=== PATIENT | female | born 1960 | race American Indian/Alaskan Native ===

== ENCOUNTER 2019-07-01 00:54 | Emergency (ER) | payer MEDICARE ==
[2019-07-01] MEDS ORDERED: SODIUM CHLORIDE 0.9% 1000 ML 1,000 ML IV ONE (01:17)
[2019-07-01] MEDS ORDERED: HYDROmorphone 1 MG/1 ML INJ IV ONE (01:19)
--- NOTE | 2019-07-01 01:19 | Emergency Department Report ---
ED General Adult HPI - General Chief complaint: Abdominal Pain Stated complaint: ABD PAIN Time Seen by Provider: 07/01/19 00:56 Source: patient, EMS ( EMS documentation not available at time of chart dictation ), RN notes reviewed Mode of arrival: Stretcher Limitations: Physical Limitation - History of Present Illness Initial comments: Gastroenterology: Dr. 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 She has chronic left upper quadrant abdominal pain. She presents to the ER today with an acute exacerbation of her left upper quadrant abdominal pain. Her symptoms have started within the past 4 to 5 hours. There are no DVT or pulmonary embolism risk factors. No fever, no cough, no confirmed exposure to coronavirus. There is no complaint of headache, neck pain, chest pain, shortness of breath, urinary symptoms, there is no complaint of extremity weakness and or numbness. This feels similar to prior episodes of gastroparesis flare. Patient makes no complaint of nausea, vomiting or diarrhea. -: Gradual, hour(s) Location: abdomen Radiation: non-radiation Consistency: constant Improves with: none Worsens with: movement - Related Data Home Medications Medication Instructions Recorded Confirmed Last Taken AtorvaSTATin [Lipitor] 10 mg PO QHS 07/01/19 07/01/19 1 Day Ago ~06/30/19 Linagliptin [Tradjenta] 5 mg PO QDAY 07/01/19 07/01/19 1 Day Ago ~06/30/19 Metformin HCl [Metformin HCl ER] 500 mg PO BID 07/01/19 07/01/19 1 Day Ago ~06/30/19 cilostazoL 50 mg PO BID 07/01/19 07/01/19 1 Day Ago ~06/30/19 lisinopriL [Zestril TAB] 10 mg PO QHS 07/01/19 07/01/19 1 Day Ago ~06/30/19 Previous Rx's Medication Instructions Recorded Last Taken Type Dicyclomine [Bentyl] 20 mg PO QID #60 tablet 05/19/13 Unknown Rx Acetaminophen [Non-Aspirin Extra 500 mg PO Q6HR PRN #30 tablet 07/01/19 Unknown Rx Strength] Famotidine [Pepcid] 20 mg PO BID #30 tablet 07/01/19 Unknown Rx Magnesium Oxide [Mag-Ox] 400 mg PO QDAY #7 tablet 07/01/19 Unknown Rx Metoclopramide [Reglan] 10 mg PO QID PRN #30 tablet 07/01/19 Unknown Rx Allergies Allergy/AdvReac Type Severity Reaction Status Date / Time morphine AdvReac Nausea Verified 09/19/14 13:35 ED Review of Systems ROS: Stated complaint: ABD PAIN Other details as noted in HPI Eyes: denies: eye discharge Respiratory: denies: wheezing Cardiovascular: denies: syncope Gastrointestinal: abdominal pain Genitourinary: denies: dysuria Musculoskeletal: as per HPI Skin: as per HPI Neurological: as per HPI Psychiatric: as per HPI Hematological/Lymphatic: as per HPI ED Past Medical Hx - Past Medical History Previous Medical History?: Yes Hx Hypertension: Yes Hx CVA: No Hx Heart Attack/AMI: No Hx Congestive Heart Failure: No Hx Diabetes: Yes Hx Deep Vein Thrombosis: No Hx Pulmonary Embolism: No Hx Renal Disease: No Hx Sickle Cell Disease: No Hx Arthritis: No Hx Seizures: No Hx Kidney Stones: No Hx Psychiatric Treatment: No Hx Asthma: No Hx COPD: No Hx Tuberculosis: No Hx Dementia: No Hx HIV: No Additional medical history: BLIND/VISUALLY IMPAIRED, Peripheral Artery Disease - Surgical History Past Surgical History?: Yes Hx Coronary Stent: No Hx Open Heart Surgery: No Hx Pacemaker: No Hx Internal Defibrillator: No Hx Cholecystectomy: Yes Hx Appendectomy: No Hx Breast Surgery: No Additional Surgical History: r ankle sx. c section x 2. EYE SURGERY - Social History Smoking Status: Never Smoker - Medications Home Medications: Home Medications Medication Instructions Recorded Confirmed Last Taken Type Dicyclomine [Bentyl] 20 mg PO QID #60 tablet 05/19/13 07/01/19 Unknown Rx Acetaminophen [Non-Aspirin Extra 500 mg PO Q6HR PRN #30 tablet 07/01/19 Unknown Rx Strength] AtorvaSTATin [Lipitor] 10 mg PO QHS 07/01/19 07/01/19 1 Day Ago History ~06/30/19 Famotidine [Pepcid] 20 mg PO BID #30 tablet 07/01/19 Unknown Rx Linagliptin [Tradjenta] 5 mg PO QDAY 07/01/19 07/01/19 1 Day Ago History ~06/30/19 Magnesium Oxide [Mag-Ox] 400 mg PO QDAY #7 tablet 04/05/20 Unknown Rx Metformin HCl [Metformin HCl ER] 500 mg PO BID 07/01/19 07/01/19 1 Day Ago History ~06/30/19 Metoclopramide [Reglan] 10 mg PO QID PRN #30 tablet 07/01/19 Unknown Rx cilostazoL 50 mg PO BID 07/01/19 07/01/19 1 Day Ago History ~06/30/19 lisinopriL [Zestril TAB] 10 mg PO QHS 07/01/19 07/01/19 1 Day Ago History ~06/30/19 ED Physical Exam - General Limitations: No Limitations General appearance: alert, anxious - Head Head exam: Present: atraumatic, normocephalic - Eye Eye exam: Present: normal appearance (Right eye appears to be within normal limits. Left eye has a cloudy opacified cornea, which is chronic as per the patient). Absent: nystagmus - ENT ENT exam: Present: normal exam, normal orophraynx, mucous membranes moist - Neck Neck exam: Present: normal inspection, full ROM. Absent: tenderness, meningismus - Respiratory Respiratory exam: Present: normal lung sounds bilaterally. Absent: respiratory distress - Cardiovascular Cardiovascular Exam: Present: regular rate, normal rhythm, normal heart sounds. Absent: bradycardia, tachycardia, irregular rhythm, systolic murmur, diastolic murmur, rubs, gallop - GI/Abdominal GI/Abdominal exam: Present: soft, tenderness, other (There is left upper quadrant tenderness, without rebound, guarding or peritoneal sign). Absent: distended, guarding, rebound, rigid, pulsatile mass - Extremities Exam Extremities exam: Present: normal inspection, full ROM, other (2+ pulses noted in the bilateral upper and lower extremities. There is no palpable cord. nega tive Homans sign. Muscular compartments are soft. The pelvis is stable.). Absent: pedal edema, calf tenderness - Back Exam Back exam: Present: normal inspection, full ROM. Absent: tenderness, CVA tenderness (R), CVA tenderness (L), paraspinal tenderness, vertebral tenderness - Neurological Exam Neurological exam: Present: alert, other (There is no facial droop. The tongue is midline. Extraocular movements are intact bilaterally. There is 5 out of 5 strength in bilateral upper and lower extremities. Sensation is intact to light touch bilateral upper and lower extremities. ) - Psychiatric Psychiatric exam: Present: anxious - Skin Skin exam: Present: warm, dry, intact, normal color. Absent: rash ED Course Vital Signs 07/01/19 07/01/19 07/01/19 01:03 01:30 01:45 Temperature 98.9 F Pulse Rate 85 88 Respiratory 11 L 12 Rate Blood Pressure 155/92 O2 Sat by Pulse 100 Oximetry 07/01/19 07/01/19 07/01/19 02:00 02:15 02:30 Temperature Pulse Rate 84 81 83 Respiratory 9 L 17 19 Rate Blood Pressure 180/96 166/93 176/94 O2 Sat by Pulse 100 100 100 Oximetry 07/01/19 07/01/19 07/01/19 02:45 03:10 03:15 Temperature Pulse Rate 84 85 81 Respiratory 13 9 L Rate Blood Pressure 175/88 180/91 161/86 O2 Sat by Pulse 100 100 Oximetry 07/01/19 03:30 Temperature Pulse Rate 76 Respiratory 12 Rate Blood Pressure 160/85 O2 Sat by Pulse 100 Oximetry - Reevaluation(s) Reevaluation #1: 07/01/19 02:18 Differential diagnosis, including but not limited to: Gastroparesis, pneumonia, urinary tract infection, obstruction, colitis, diverticulitis, perforated viscus Assessment and plan: 58-year-old female with reported history of gastroparesis, not currently tachycardic, tachypneic or hypoxic, who endorses no DVT or pulmonary embolism risk factors, presenting with acute on chronic exacerbation of left upper quadrant abdominal pain. She is afebrile with reassuring vital signs with exception of elevated blood pressure. Laboratory studies reviewed and appreciated. She will be given fluids, hydromorphone, insulin, magnesium sulfate, CT scan abdomen pelvis is ordered, urinalysis is pending at this time, I have requested that nursing team reconcile medications. Reevaluation #2: 07/01/19 03:[address] scan abdomen pelvis negative for acute disease. Laboratory studies reviewed and appreciated, patient is found to have elevated lipase. This may be early pancreatitis. However, her pain is improved, CT scan negative for acute findings, she is tolerating liquid feeds, she is suitable for trial of outpatient management. Furthermore, her gastroenterology group is typically quite able and willing to accommodate outpatient appointments for follow-up. Patient will be discharged with prescription for pain medication, nausea medication, instructions to follow-up with her outpatient tea taster. Return precautions are reviewed. ED Medical Decision Making - Lab Data Result diagrams: 07/01/19 01:26 07/01/19 01:26 Vital Signs 07/01/19 07/01/19 07/01/19 01:03 01:30 01:45 Temperature 98.9 F Pulse Rate 85 88 Respiratory 11 L 12 Rate Blood Pressure 155/92 O2 Sat by Pulse 100 Oximetry 07/01/19 02:00 Temperature Pulse Rate 84 Respiratory 9 L Rate Blood Pressure 180/96 O2 Sat by Pulse 100 Oximetry Lab Results 07/01/19 07/01/19 Range/Units 01:26 01:26 WBC 6.6 (4.5-11.0) K/mm3 RBC 4.06 (3.65-5.03) M/mm3 Hgb 12.6 (10.1-14.3) gm/dl Hct 37.5 (30.3-42.9) % MCV 92 (79-97) fl MCH 31 (28-32) pg MCHC 34 (30-34) % RDW 12.7 L (13.2-15.2) % Plt Count 243 (140-440) K/mm3 Sodium 138 (137-145) mmol/L Potassium 3.9 (3.6-5.0) mmol/L Chloride 102.2 (98-107) mmol/L Carbon Dioxide 23 (22-30) mmol/L Anion Gap 17 mmol/L BUN 10 (7-17) mg/dL Creatinine 0.7 (0.7-1.2) mg/dL Estimated GFR > 60 ml/min BUN/Creatinine Ratio 14 % Glucose 357 H (65-100) mg/dL Calcium 9.4 (8.4-10.2) mg/dL Magnesium 1.50 L (1.7-2.3) mg/dL Total Bilirubin 0.30 (0.1-1.2) mg/dL AST 17 (5-40) units/L ALT 22 (7-56) units/L Alkaline Phosphatase 82 (35-129) units/L Total Protein 7.0 (6.3-8.2) g/dL Albumin 4.1 (3.9-5) g/dL Albumin/Globulin Ratio 1.4 % - EKG Data -: EKG Interpreted by [facility] EKG shows normal: sinus rhythm Rate: normal - EKG Data 07/01/19 02:18 Sinus rhythm, 91 bpm, normal axis, QTC 443 ms, incomplete/poor R wave progression, motion artifact. The EKG is abnormal, it is not a STEMI, it appears to be unchanged from prior EKG from September 19, 2014 - Radiology Data Radiology results: pending, report reviewed, image reviewed Print Report Referring Physician: DIANA TELLEZ Patient Name: RENATE URIBE Date of : 1960 Sex: Female Report Date: 2019-07-01 Report Status: Finalized Findings [facility] [address] [place] [id number] Cat Scan Report Signed Patient: RENATE URIBE MR#: [id number] : 1960 Acct:[id number] Age/Sex: 58 / F ADM Date: 07/01/19 Loc: ED Attending Dr: Ordering Physician: DIANA TELLEZ MD Date of Service: 07/01/19 Procedure(s): CT abdomen pelvis w con Accession Number(s): [id number] cc: DIANA TELLEZ MD CT abdomen pelvis w con INDICATION / CLINICAL INFORMATION: MAIN: luq abd pain, ttp, hx of "gastroparesis" 100cc of omnipaque 300 . TECHNIQUE: All CT scans at this location are performed using CT dose reduction for ALARA by means of automated exposure control. COMPARISON: None available. FINDINGS: Limited lower thoracic images are negative. ABDOMEN: Stomach is not significantly distended. Cholecystectomy. The liver, spleen, pancreas, kidneys and adrenal glands are normal. No small bowel dilatation. Atherosclerotic changes are seen in the aortoiliac vessels without aneurysm. No mesenteric or retroperitoneal adenopathy. Pelvis: No dependent fluid collections or acute inflammatory changes are identified in the pelvis. There is a mild uterine enlargement with several fibroids noted. Healed pelvic fractures. IMPRESSION: 1. No acute abdominal or pelvic abnormalities. Signer Name: Neville Bernard MD Signed: 07/01/2019 3:26 AM Workstation Name: [id number] Transcribed By: DIANE Dictated By: Neville Bernard MD Electronically Authenticated By: Neville Bernard MD Signed Date/Time: 07/01/19 0326 Critical care attestation.: If time is entered above; I have spent that time in minutes in the direct care of this critically ill patient, excluding procedure time. ED Disposition Clinical Impression: Hyperglycemia, Elevated lipase, Left upper quadrant abdominal pain, Hypomagnesemia Disposition: DC-01 TO HOME OR SELFCARE Is pt being admited?: No Does the pt Need Aspirin: No Condition: Stable Instructions: Pancreatitis (ED) Additional Instructions: Continue outpatient medications, with the exception of metformin; the patient should not take this medication for the next 48 hours. Please drink 4 to 6 cups of water per day, avoid consumption of Motrin, ibuprofen, Naprosyn, Aleve, heavy and/or spicy foods, avoid consumption of alcohol, sugary drinks. Take the pain medication, nausea medication as needed and/or directed. Please follow-up with your outpatient primary care doctor or tea taster within the next 3 to 5 days for repeat checkup and/or evaluation. Please return to the emergency room right away with new pain, worsened pain, migration of pain, projectile vomiting, change in mental status, confusion, inability to tolerate liquid feeds, new, worsened or different symptoms not present on the initial emergency room evaluation. Referrals: AJ LOVE MD [Staff Physician] - 3-5 Days
[2019-07-01 01:54] LABS: Hematocrit 37.5 % (30.3-42.9); Hemoglobin 12.6 gm/dl (10.1-14.3); Mean Corpuscular HGB Conc 34 % (30-34); Mean Corpuscular Volume 92 fl (79-97); Platelet Count 243 K/mm3 (140-440); Red Blood Count 4.06 M/mm3 (3.65-5.03); Red Cell Distribution Width 12.7 % (13.2-15.2)
[2019-07-01 02:09] LABS: Alanine Aminotransferase 22 units/L (7-56); Albumin 4.1 g/dL (3.9-5); BUN/Creatinine Ratio 14; Blood Urea Nitrogen 10 mg/dL (7-17); Calcium 9.4 mg/dL (8.4-10.2); Hemolysis Index 6
[2019-07-01] MEDS ORDERED: MAGNESIUM SULFATE 2 GM/50 ML BAG IV ONE (02:15)
[2019-07-01] MEDS ORDERED: INSULIN REGULAR, HUMAN 100 UNITS/1 ML IV ONE (02:15)
[2019-07-01 02:27] LABS: INR 0.84 (0.87-1.13)
--- NOTE | 2019-07-01 03:30 | Cat Scan Report ---
CT abdomen pelvis w con INDICATION / CLINICAL INFORMATION: MAIN: luq abd pain, ttp, hx of "gastroparesis" 100cc of omnipaque 300 . TECHNIQUE: All CT scans at this location are performed using CT dose reduction for ALARA by means of automated e xposure control. COMPARISON: None available. FINDINGS: Limited lower thoracic images are negative. ABDOMEN: Stomach is not significantly distended. Cholecystectomy. The liver, spleen, pancreas, kidneys and adrenal glands are normal. No small bowel dilatation. Atherosclerotic changes are seen in the aortoiliac vessels without aneurysm. No mesenteric or retroperitoneal adenopathy. Pelvis: No dependent fluid collections or acute inflammatory changes are identified in the pelvis. There is a mild uterine enlargement with several fibroids noted. Healed pelvic fractures. IMPRESSION: 1. No acute abdominal or pelvic abnormalities. Signer Name: Neville Bernard MD Signed: 07/01/2019 3:26 AM Workstation Name: [id number]
[2019-07-01 03:45] VITALS: BP 160/85
== END 2019-07-01 04:41 | disposition home or self-care (01) ==
LOC: ED 00:54
DX: E11.65 Type 2 diabetes mellitus with hyperglycemia (principal); R74.8 Abnormal levels of other serum enzymes; E83.42 Hypomagnesemia; R10.12 Left upper quadrant pain; I10 Essential (primary) hypertension; E11.9 Type 2 diabetes mellitus without complications
CPT/HCPCS: 36415; 74177; 80053; 82550; 82962; 83690; 83735; 85027; 85610; 93005; 93010; 96361; 96365; 96375; 99285; J1170; J3475; J7030; Q9967; J1815